=== PATIENT | male | born 1990 | race African-American/Black ===

== ENCOUNTER 2023-08-05 10:18 | Emergency (ER) | payer MEDICAID ==
[~2023-08-05] VITALS: Ht 167.6 cm; Wt 64.0 kg
[2023-08-05 10:26] VITALS: O2SAT 98
[2023-08-05 11:48] LABS: BASOPHILS % 0.8 % (0.0-2.0); EOSINOPHILS % 2.8 % (0.0-5.0); HEMATOCRIT. 40.2 % (42.0-52.0); HEMOGLOBIN. 13.5 g/dL (14.0-18.0); LYMPHOCYTES % 26.6 % (20.0-50.0); MEAN CORPUSCULAR HEMOGLOBIN 30.8 pg (28.0-32.0); MEAN CORPUSCULAR HGB CONC 33.6 g/dL (31.0-37.0); MEAN CORPUSCULAR VOLUME 91.6 fL (80.0-94.0); MEAN PLATELET VOLUME 7.9 fl (7.4-10.4); MONOCYTES % 12.6 % (2.0-8.0); NEUTROPHILS % 57.2 % (40.0-76.0); PLATELET 242 x1000/uL (130-400); RED BLOOD CELL COUNT 4.39 mill/uL (4.7-6.1); RED CELL DISTRIBUTION WIDTH 13.7 % (11.6-14.6); WHITE BLOOD COUNT 5.4 x1000/uL (4.5-11.0)
[2023-08-05 12:00] LABS: CHLORIDE 107 mEq/L (98-107); INDEX HEMOLYSI 1 (1-3); INDEX ICTERIC 1 (1-4); INDEX LIPEMIC 1 (1-3); POTASSIUM 4.2 mEq/L (3.5-5.1); SODIUM 135 mEq/L (136-145)
[2023-08-05 12:24] LABS: ALANINE AMINOTRANSFERASE 50 IU/L (13-61); ALBUMIN 3.3 g/dL (3.4-5.0); ASPARTATE AMINOTRANSFERASE 35 IU/L (15-37); BILIRUBIN TOTAL 0.4 mg/dL (0.1-1.0); CALCIUM 8.6 mg/dL (8.5-10.1); CARBON DIOXIDE 29 mEq/L (21-32); CREATININE 0.9 mg/dL (0.6-1.3); ETHANOL BLOOD < 10 mg/dL (<10); GLUCOSE 86 mg/dL (70-105); PROTEIN TOTAL 7.1 g/dL (6.0-8.3); TROPONIN I HIGH SENSITIVITY 5 ng/L (<78); UREA NITROGEN BLOOD 14 mg/dL (7-21)
[2023-08-05 16:01] LABS: AMMONIA < 10 uMol/L (<32)
[2023-08-06] MEDS ORDERED: HALOPERIDOL LACTATE 5MG/ML VIAL IM ONE (03:00)
[2023-08-06] MEDS ORDERED: LORAZEPAM 2MG/ML CPJ IM ONE (03:00)
[2023-08-06 09:32] LABS: CLARITY URINE CLEAR (CLEAR); COLOR URINE YELLOW (YELLOW); GLUCOSE URINE NEGATIVE (NEGATIVE); KETONES URINE NEGATIVE (NEGATIVE); LEUKOCYTE ESTERASE URINE TRACE (NEGATIVE); NITRITE URINE NEGATIVE (NEGATIVE); OCCULT BLOOD URINE NEGATIVE (NEGATIVE); PH URINE 5.5 (4.5-8.0); PROTEIN URINE NEGATIVE (NEGATIVE); SPECIFIC GRAVITY URINE 1.015 (1.005-1.030); UROBILINOGEN URINE 0.2 E.U./dL (0.2-1.0)
[2023-08-06 09:33] LABS: YEAST URINE NONE SEEN
[2023-08-06 09:46] LABS: BACTERIA URINE RARE; RBC URINE 0-2 /hpf (0-2); SQUAMOUS EPITHELIAL CELL URINE RARE /lpf (RARE/1+)
[2023-08-06 10:21] LABS: *AMPHETAMINES SCREEN URINE NEGATIVE (NEGATIVE); *BARBITURATES SCREEN URINE NEGATIVE (NEGATIVE); *BENZODIAZEPINES SCREEN URINE NEGATIVE (NEGATIVE); *COCAINE SCREEN URINE PRESUMTIVE POSITIVE (NEGATIVE); CANNABINOID URINE SCREEN NEGATIVE (NEGATIVE); ECSTASY MDMA SCREEN URINE NEGATIVE (NEGATIVE); OPIATES URINE SCREEN NEGATIVE (NEGATIVE); PHENCYCLIDINE URINE SCREEN NEGATIVE (NEGATIVE)
[2023-08-06 12:16] VITALS: BP 132/82; PULSE 76; RESP 16; TEMP 97.8
== END 2023-08-06 12:17 | disposition home or self-care (01) ==
LOC: ER 12:09 → EDBD 12:09 → ER 08-06 12:17
DX: R45.6 Violent behavior (principal)
CPT/HCPCS: 80053; 80320; 82140; 85025; 84484; 36415; 71045; 70450; 99285; 80305; 81003; 96372; J1630; J2060; Z7610; G0480

== ENCOUNTER 2023-09-14 17:22 | Emergency (ER) | payer MEDICAID ==
[~2023-09-14] VITALS: Ht 177.8 cm; Wt 90.0 kg
[2023-09-14 17:43] VITALS: BP 125/71; PULSE 107; RESP 18; TEMP 98.8; O2SAT 98
[2023-09-14 17:52] LABS: HEMATOCRIT. 37.4 % (42.0-52.0); HEMOGLOBIN. 12.6 g/dL (14.0-18.0); MEAN CORPUSCULAR HGB CONC 33.7 g/dL (31.0-37.0); MEAN CORPUSCULAR VOLUME 92.1 fL (80.0-94.0); MEAN PLATELET VOLUME 8.1 fl (7.4-10.4); PLATELET 197 x1000/uL (130-400); RED BLOOD CELL COUNT 4.06 mill/uL (4.7-6.1); RED CELL DISTRIBUTION WIDTH 13.6 % (11.6-14.6); WHITE BLOOD COUNT 4.6 x1000/uL (4.5-11.0)
[2023-09-14 17:53] LABS: DIFFERENTIAL COMMENT 1
[2023-09-14 18:00] LABS: CHLORIDE 107 mEq/L (98-107); INDEX HEMOLYSI 2 (1-3); INDEX ICTERIC 1 (1-4); INDEX LIPEMIC 1 (1-3); POTASSIUM 3.5 mEq/L (3.5-5.1); SODIUM 139 mEq/L (136-145)
[2023-09-14 18:08] LABS: ALANINE AMINOTRANSFERASE 37 IU/L (13-61); ALBUMIN 2.9 g/dL (3.4-5.0); ASPARTATE AMINOTRANSFERASE 16 IU/L (15-37); BILIRUBIN TOTAL 0.2 mg/dL (0.1-1.0); CALCIUM 8.4 mg/dL (8.5-10.1); CARBON DIOXIDE 27 mEq/L (21-32); CREATININE 0.9 mg/dL (0.6-1.3); GLUCOSE 150 mg/dL (70-105); PROTEIN TOTAL 6.6 g/dL (6.0-8.3); UREA NITROGEN BLOOD 15 mg/dL (7-21)
[2023-09-14 18:36] LABS: PLATELET ESTIMATE NORMAL
== END 2023-09-14 18:55 | disposition left against medical advice (07) ==
LOC: ER 17:42
DX: R10.9 Unspecified abdominal pain (principal); Z53.21 Procedure and treatment not carried out due to patient leaving prior to being seen by health care provider
CPT/HCPCS: 36415; 80053; 85025; 99281

== ENCOUNTER 2023-09-17 16:03 | Emergency (ER) | payer MEDICAID ==
[~2023-09-17] VITALS: Ht 175.3 cm; Wt 75.0 kg
[2023-09-17 16:13] VITALS: O2SAT 99
[2023-09-17 17:18] LABS: MEAN CORPUSCULAR HEMOGLOBIN 30.9 pg (28.0-32.0); MEAN CORPUSCULAR HGB CONC 33.3 g/dL (31.0-37.0); MEAN CORPUSCULAR VOLUME 92.6 fL (80.0-94.0); MEAN PLATELET VOLUME 8.3 fl (7.4-10.4); PLATELET 272 x1000/uL (130-400); RED BLOOD CELL COUNT 3.89 mill/uL (4.7-6.1); RED CELL DISTRIBUTION WIDTH 14.1 % (11.6-14.6); WHITE BLOOD COUNT 6.8 x1000/uL (4.5-11.0)
[2023-09-17] MEDS ORDERED: ONDANSETRON HCL 4MG/2ML INJ IM NR (17:45)
[2023-09-17] MEDS ORDERED: MORPHINE SULFATE 4 MG/ML CPJ (NOT FOR IM USE) IV ONE (17:45)
[2023-09-17] MEDS ORDERED: ONDANSETRON HCL 4MG/2ML INJ IM ONE (17:45)
[2023-09-17] MEDS ORDERED: MORPHINE SULFATE 4 MG/ML CPJ (NOT FOR IM USE) IV NR (17:45)
[2023-09-17 17:53] LABS: DIFFERENTIAL COMMENT 1
[2023-09-17 17:55] LABS: CHLORIDE 109 mEq/L (98-107); INDEX HEMOLYSI 1 (1-3); INDEX ICTERIC 1 (1-4); INDEX LIPEMIC 1 (1-3); POTASSIUM 3.5 mEq/L (3.5-5.1); SODIUM 140 mEq/L (136-145)
[2023-09-17 18:02] LABS: ALANINE AMINOTRANSFERASE 51 IU/L (13-61); ALBUMIN 2.7 g/dL (3.4-5.0); ASPARTATE AMINOTRANSFERASE 21 IU/L (15-37); BILIRUBIN TOTAL 0.1 mg/dL (0.1-1.0); CALCIUM 8.5 mg/dL (8.5-10.1); CARBON DIOXIDE 26 mEq/L (21-32); GLUCOSE 118 mg/dL (70-105); PROTEIN TOTAL 6.5 g/dL (6.0-8.3); UREA NITROGEN BLOOD 13 mg/dL (7-21)
[2023-09-17] MEDS ORDERED: ACETAMINOPHEN 325MG TABLET PO ONE (20:30)
[2023-09-17] MEDS ORDERED: ACETAMINOPHEN 500MG TABLET PO NR (20:30)
[2023-09-17 21:06] VITALS: TEMP 98.4
[2023-09-17 22:46] LABS: ATYPICAL LYMPHOCYTES 2; PLATELET ESTIMATE NORMAL
[2023-09-17 23:05] LABS: CLARITY URINE CLEAR (CLEAR); COLOR URINE YELLOW (YELLOW); GLUCOSE URINE NEGATIVE (NEGATIVE); KETONES URINE NEGATIVE (NEGATIVE); LEUKOCYTE ESTERASE URINE TRACE (NEGATIVE); NITRITE URINE NEGATIVE (NEGATIVE); OCCULT BLOOD URINE NEGATIVE (NEGATIVE); PROTEIN URINE NEGATIVE (NEGATIVE); SPECIFIC GRAVITY URINE 1.021 (1.005-1.030); UROBILINOGEN URINE 0.2 E.U./dL (0.2-1.0)
[2023-09-17 23:15] LABS: *AMPHETAMINES SCREEN URINE NEGATIVE (NEGATIVE); *BARBITURATES SCREEN URINE NEGATIVE (NEGATIVE); *BENZODIAZEPINES SCREEN URINE NEGATIVE (NEGATIVE); *COCAINE SCREEN URINE PRESUMTIVE POSITIVE (NEGATIVE); CANNABINOID URINE SCREEN NEGATIVE (NEGATIVE); ECSTASY MDMA SCREEN URINE NEGATIVE (NEGATIVE); METHADONE URINE SCREEN NEGATIVE (NEGATIVE); OPIATES URINE SCREEN PRESUMTIVE POSITIVE (NEGATIVE); PHENCYCLIDINE URINE SCREEN NEGATIVE (NEGATIVE)
[2023-09-17] MEDS ORDERED: IOHEXOL-300 100 ML BOTTLE ONE (23:28)
[2023-09-18 00:41] VITALS: BP 126/79; PULSE 87; RESP 16
[2023-09-18 02:54] LABS: SQUAMOUS EPITHELIAL CELL URINE FEW /lpf (RARE/1+)
[2023-09-18 02:57] LABS: RBC URINE NONE SEEN /hpf (0-2)
[2023-09-18 02:59] LABS: BACTERIA URINE TRACE
[2023-09-18 03:00] LABS: CALCIUM OXALATE CRYSTALS URINE 1+ /lpf
== END 2023-09-18 01:02 | disposition home or self-care (01) ==
LOC: ER 16:03
DX: R10.9 Unspecified abdominal pain (principal)
CPT/HCPCS: 80053; 80305; 81003; 83605; 83690; 85025; 36415; 74177; 96372; 96374; 99285; Q9967; J2405; J2270; Z7610 ×3